=== PATIENT | male | born 1985 | race Caucasian/White ===

== ENCOUNTER 2018-04-26 17:57 | Emergency (ER) | payer OTHER ==
[~2018-04-26] VITALS: Ht 177.8 cm; Wt 145.1 kg
== END 2018-04-26 22:28 | disposition home or self-care (01) ==
LOC: ER 17:57
DX: K21.9 Gastro-esophageal reflux disease without esophagitis (principal)

== ENCOUNTER 2018-09-02 20:01 | Emergency (ER) | payer OTHER ==
[~2018-09-02] VITALS: Ht 177.8 cm; Wt 124.7 kg
== END 2018-09-02 22:24 | disposition home or self-care (01) ==
LOC: ER 20:01
DX: R42 Dizziness and giddiness (principal)

== ENCOUNTER 2022-07-18 18:09 | Emergency (ER) | payer OTHER ==
[~2022-07-18] VITALS: Ht 177.8 cm; Wt 149.7 kg
[2022-07-18] MEDS ORDERED: METROPOLOL 100 MG (19:43)
== END 2022-07-18 22:41 | disposition home or self-care (01) ==
LOC: ER 18:09
DX: R10.84 Generalized abdominal pain (principal); K59.00 Constipation, unspecified